=== PATIENT | female | born 1980 | race Caucasian/White ===

== ENCOUNTER 2020-10-06 13:40 | Emergency (ER) | payer MEDICAID ==
[~2020-10-06] VITALS: Ht 162.6 cm; Wt 64.5 kg
[2020-10-06] MEDS ORDERED: LISINOPRIL (13:43)
[2020-10-06] MEDS ORDERED: METFORMIN (13:43)
[2020-10-06] MEDS ORDERED: IBUPROFEN 600MG TABLET PO ONE (14:00)
[2020-10-06] MEDS ORDERED: IBUP-2028 MT (15:13)
[2020-10-06 15:29] VITALS: BP 124/76
== END 2020-10-06 15:35 | disposition home or self-care (01) ==
LOC: ER 13:51
DX: M54.2 Cervicalgia (principal); R51.9 Headache, unspecified; M54.6 Pain in thoracic spine; V49.59XA Passenger injured in collision with other motor vehicles in traffic accident, initial encounter; Y93.89 Activity, other specified; Y92.488 Other paved roadways as the place of occurrence of the external cause; I10 Essential (primary) hypertension; E11.9 Type 2 diabetes mellitus without complications; E78.00 Pure hypercholesterolemia, unspecified
CPT/HCPCS: 72070; 99285